=== PATIENT | male | born 1970 | race Hispanic/Latino ===

== ENCOUNTER 2016-12-24 11:49 | Emergency (ER) | payer SELFPAY ==
[2016-12-24 12:19] LABS: BASOPHILS 0.2 % (0.0-2.0); EOSINOPHILS 0.1 % (0.0-6.0); HEMATOCRIT 49.5 % (42.0-54.0); HEMOGLOBIN 16.9 g/dL (14.0-18.0); LYMPHOCYTES 6.9 % (20.0-40.0); LYMPHOCYTES# 0.9 X 10^3uL (0.8-3.8); MEAN CELL VOLUME 84.8 fL (80.0-100.0); MEAN CORPUSCULAR HEMOGLOBIN 28.9 pg (29.0-35.0); MEAN PLATELET VOLUME 7.9 fL (7.4-10.4); MONOCYTES 3.7 % (2.0-10.0); MONOCYTES# 0.5 X 10^3uL (0.2-1.0); NEUTROPHILS 89.1 % (54.0-75.0); PLATELET COUNT 316 X 10^3uL (130-440); RED BLOOD COUNT 5.83 X 10^6uL (4.20-6.10); RED CELL DISTRIBUTION WIDTH 12.8 % (11.5-14.5); WHITE BLOOD COUNT 13.4 X 10^3uL (3.9-10.7)
[2016-12-24] MEDS ORDERED: MAG-AL PLUS XS SUSP 30 ML UDC ONE (12:19)
[2016-12-24] MEDS ORDERED: LIDOCAINE VISCOUS 2% 15 ML UDC ONE (12:19)
[2016-12-24 12:29] LABS: BLOOD UREA NITROGEN 24 mg/dL (9-20); CALCIUM 9.5 mg/dL (8.4-10.2); CHLORIDE 105 mmol/L (98-107); EST GLOMERULAR FILTRATION RATE > 60 mL/min; GLUCOSE 120 mg/dL (70-100); MAGNESIUM 2.4 mg/dL (1.6-2.3); SODIUM 143 mmol/L (137-145)
[2016-12-24] MEDS ORDERED: HEPARIN SOD PORCINE 5,000 UNITS/ML VIAL ONE (13:24)
[2016-12-24 13:38] LABS: INR 0.9
--- NOTE | 2016-12-24 14:08 | ER NURSING DOCUMENTATION ---
Nurse's Notes [facility] Name:Priscilla Rick Age:46 yrs Sex:Male :1970 Arrival Date:12/24/2016 Time:11:49 BedTrauma-C Private MD: Diagnosis:Unstable Angina Presentation: 12/24 11:53 Acuity: RUDI 2 tg 11:57 Presenting complaint: Patient states: Woken by substernal chest pain at 0400. Seen in tg [place], where the MD thought there could be some ST changes, and referred to [facility] ED. Transition of care: [facility]. AIR CAT ACTIVATION no. 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 11:57 Method Of Arrival: Private Vehicle tg Triage Assessment: 12:01 General: Appears in no apparent distress, Behavior is appropriate for age. Pain: Denies lp pain. Cardiovascular: Capillary refill < 3 seconds Heart tones S1 S2 Pulses are all present. Historical: - Allergies: No known drug Allergies; - Home Meds: 1. Synthroid Oral - PMHx: THYROID PROBLEM; - PSHx: None; - Tetanus: unknown. - Ebola Screening: : Patient negative for fever greater than or equal to 101.5 degrees Fahrenheit, and additional compatible Ebola Virus Disease symptoms. Patient denies exposure to infectious person. Patient denies travel to an Ebola-affected area in the 21 days before illness onset. No symptoms or risks identified at this time. . - Immunization history: Flu Vaccine unknown. - Social history: Smoking status: Patient states was never smoker of tobacco. Screenin:59 Infectious Disease Risk Unable to Obtain. Abuse screen: Denies threats or abuse. Denies tg injuries from another. Nutritional screening: No deficits noted. Assessment: 13:19 Reassessment: Per fartun Gomez to wait for EMS 420 to return to [facility] (approx 30 tg minutes) to transfer this pt. . Vital Signs: 12:00 BP 125 / 94; Pulse 83; Resp 16; Temp 97.3(TE); Pulse Ox 96% on R/A; Weight 60.33 kg; lp Height 5 ft. 3 in. (160.02 cm); Pain 0/10; 13:10 BP 113 / 64; Pulse 85; Resp 18; Pulse Ox 93% on R/A; Pain 1/10; tg 12:00 Body Mass Index 23.56 (60.33 kg, 160.02 cm) lp ED Course: 11:49 EKG done. (by ED staff). Reviewed by Tomi Busch MD. tg 11:50 Patient arrived in ED. ama 11:53 Drake Daily RN is Primary Nurse. tg 11:53 Triage completed. tg 11:55 Tomi Busch MD is Attending Physician. sc 11:59 Valuables Remains with patient. cvt tech on. Pulse ox on. tg Administered Medications: 12:08 CANCELLED (Physician Discretion): Aspirin Chewable Tablet 324 mg PO once lp 12:08 Drug: GI Cocktail w/o Donnatol - (Maalox Suspension 30 ml, Lidocaine Liquid 2 % 15 ml); lp Route: PO; 12:34 Follow up: Response: No adverse reaction; Pain is decreased lp 13:15 Drug: heparin 60 units/kg; {Note: 3600 units.} Route: IVP; Site: right antecubital; lp 13:47 Follow up: Response: No adverse reaction tg Outcome: 13:14 ER care complete, transfer ordered by . fl 14:06 Patient left the ED. [facility] 14:08 [facility] Time: December 24, 2016 at 13:00 Patient's face sheet was faxed to accepting facility. Face Sheet included patient's name, address, age, gender, contact information and insurance information. Patient will be transported by: [facility] EMS ground. Report called to: ENMANUEL Frey Nurse and Physician Charting and Notes were sent to Accepting Facility. All tests and/or procedures with results, if applicable, were sent to accepting facility. 14:12 Transferred: tg 14:12 Condition: stable 14:12 Discharge Assessment: Patient awake and alert. 14:12 Instructed on need for transfer Signatures: Drake Daily RN RN tg Brenda Stewart RN RN Tomi Busch MD MD sc Kruger, Meg RN RN 2 Jose Clemons Andrew, Reg Reg ama
--- NOTE | 2016-12-24 14:08 | ER PHYSICIAN DOCUMENTATION ---
Physician Documentation [facility] Name:Priscilla Rick Age:46 yrs Sex:Male :1970 Arrival Date:12/24/2016 Time:11:49 BedTrauma-C Private MD: Tomi Sahni Disposition: 12/24 12:14 Critical Care: not applicable. nm Disposition: 12/24/16 13:14 Transfer ordered to [facility]. Diagnosis is Unstable Angina. - Reason for transfer: Higher level of care. - Accepting physician is Stroat. - Condition is Critical. - Problem is new. - Symptoms have improved. COBRA Form completed? Yes Transfer - Mode of Transportation Ambulance HPI: 12:09 This 46 yrs old Male presents to ER via Private Vehicle with complaints of sc Chest Pain. 12:09 The patient or guardian reports chest pain that is located primarily in the epigastric sc area, anterior chest wall. Onset: at 04:00. The pain does not radiate. There has been no movement of pain. Associated signs and symptoms: Pertinent negatives: diaphoresis, shortness of breath, vomiting. The chest pain is described as a pressure. Duration: The patient or guardian reports a single episode, that is still ongoing, but improving. Modifying factors: The symptoms are alleviated by nothing. Severity of pain: At its worst the pain was moderate in the emergency department the pain is a 1 / 10. Historical: - Allergies: No known drug Allergies; - Home Meds: 1. Synthroid Oral - PMHx: THYROID PROBLEM; - PSHx: None; - Tetanus: unknown. - Ebola Screening: : Patient negative for fever greater than or equal to 101.5 degrees Fahrenheit, and additional compatible Ebola Virus Disease symptoms. Patient denies exposure to infectious person. Patient denies travel to an Ebola-affected area in the 21 days before illness onset. No symptoms or risks identified at this time. . - Immunization history: Flu Vaccine unknown. - Social history: Smoking status: Patient states was never smoker of tobacco. ROS: 12:11 Constitutional: Negative for fever, chills, and weight loss. sc Eyes: Negative for injury, pain, redness, and discharge. ENT: Negative for injury, pain, and discharge. Neck: Negative for injury, pain, and swelling. Respiratory: Negative for shortness of breath, cough, wheezing, and pleuritic chest pain. Abdomen/GI: Negative for abdominal pain, nausea, vomiting, diarrhea, and constipation. Back: Negative for injury and pain. MS/Extremity: Negative for injury and deformity. Skin: Negative for injury, rash, and discoloration. 12:11 Neuro: Negative for headache, weakness, numbness, tingling, and seizure. sc 12:11 Cardiovascular: Positive for chest pain. Exam: Constitutional: This is a well developed, well nourished patient who is awake, alert, and in no acute distress. Head/Face: Normocephalic, atraumatic. Eyes: Pupils equal round and reactive to light, extra-ocular motions intact. Lids and lashes normal. Conjunctiva and sclera are non-icteric and not injected. Cornea within normal limits. Periorbital areas with no swelling, redness, or edema. ENT: Nares patent. No nasal discharge, no septal abnormalities noted. Tympanic membranes are normal and external auditory canals are clear. Oropharynx with no redness, swelling, or masses, exudates, or evidence of obstruction, uvula midline. Mucous membranes moist. Neck: Trachea midline, no thyromegaly or masses palpated, and no cervical lymphadenopathy. Supple, full range of motion without nuchal rigidity, or vertebral point tenderness. No meningismus. 12:11 Chest/axilla: Normal chest wall appearance and motion. Nontender with no deformity. sc No lesions are appreciated. Back: No spinal tenderness. No costovertebral tenderness. Full range of motion. Skin: Warm, dry with normal turgor. Normal color with no rashes, no lesions, and no evidence of cellulitis. MS/ Extremity: Pulses equal, no cyanosis. Neurovascular intact. Full, normal range of motion, negative Homans's, calves equal bilaterally. 12:11 Neuro: Awake and alert, GCS 15, oriented to person, place, time, and situation. Cranial nerves II-XII grossly intact. Motor strength 5/5 in all extremities. Sensory grossly intact. Cerebellar exam normal. Normal gait. 12:11 Cardiovascular: Rate: normal, Rhythm: regular. 12:11 Respiratory: the patient does not display signs of respiratory distress. Vital Signs: 12:00 BP 125 / 94; Pulse 83; Resp 16; Temp 97.3(TE); Pulse Ox 96% on R/A; Weight 60.33 kg; lp Height 5 ft. 3 in. (160.02 cm); Pain 0/10; 13:10 BP 113 / 64; Pulse 85; Resp 18; Pulse Ox 93% on R/A; Pain 1/10; tg 12:00 Body Mass Index 23.56 (60.33 kg, 160.02 cm) lp MDM: 11:55 Patient medically screened. nm 12:12 Differential diagnosis: acute myocardial infarction, acute pericarditis, anxiety, sc coronary artery disease gastritis, gastroesophageal reflux disease (GERD). Patient took aspirin within the past 24 hours. Patient did not receive fibrinolytic due to na. Data reviewed: vital signs, nurses notes, old medical records, lab test result(s), EKG, radiologic studies, and as a result, I will continue to observe the patient. Data interpreted: fsr: rate is 80 beats/min, rhythm is normal sinus rhythm. ECG:. 12/24 12:31 Order name: CBC AUTO DIF, MDIF/RMOR IF IND [facility] 12/24 13:04 Order name: BASIC METABOLIC PANEL [facility] 12/24 13:04 Order name: MAGNESIUM [facility] 12/24 13:04 Order name: TROPONIN I [facility] / 13:11 Interpretation: Abnormal. nm 12/24 13:07 Order name: DDIMER [facility] 12/24 13:44 Order name: PROTIME/INR [facility] 12/25 14:29 Order name: CHEST; SINGLE VIEW [id number] [facility] 12/24 11:56 Order name: 12-lead EKG; Complete Time: 11:59 nm 12/24 11:56 Order name: Iv Saline Lock; Complete Time: 12:08 nm 12/24 11:56 Order name: Place Patient On Monitor; Complete Time: 12:08 nm 12/24 11:56 Order name: Pulse Ox Continuous; Complete Time: 12:08 nm EC:12 Rate is 80 beats/min. Rhythm is regular. QRS [place] is Normal. SD interval is normal. QRS sc interval is normal. QT interval is normal. No Q waves. T waves are Normal. No ST changes noted. Clinical impression: Normal ECG and LVH. Interpreted by me. Reviewed by me. Dispensed Medications: 12:08 CANCELLED (Physician Discretion): Aspirin Chewable Tablet 324 mg PO once lp 12:08 Drug: GI Cocktail w/o Donnatol - (Maalox Suspension 30 ml, Lidocaine Liquid 2 % 15 ml); lp Route: PO; 12:34 Follow up: Response: No adverse reaction; Pain is decreased lp 13:15 Drug: heparin 60 units/kg; {Note: 3600 units.} Route: IVP; Site: right antecubital; lp 13:47 Follow up: Response: No adverse reaction tg Signatures: Drake Daily RN RN tg Brenda Stewart RN RN lp Tomi Busch MD MD sc Kruger, Meg, RN RN mk2
--- NOTE | 2016-12-25 13:33 | RADIOLOGY REPORT ---
A limited single portable view of the chest demonstrates the heart, vessels and lungs to be unremarkable. No infiltrate, fluid or pneumothorax is seen. IMPRESSION: Unremarkable limited single portable view of the chest. MTDD
== END 2016-12-24 14:07 | disposition short-term general hospital (02) ==
LOC: ER 11:49
DX: I20.0 Unstable angina (principal); I51.7 Cardiomegaly; R74.8 Abnormal levels of other serum enzymes; E03.9 Hypothyroidism, unspecified; Z79.899 Other long term (current) drug therapy; Z99.89 Dependence on other enabling machines and devices; Z74.3 Need for continuous supervision
CPT/HCPCS: 71010; 80048; 83735; 84484; 85025; 85379; 85610; 93005; 96374; 99285; A0425; A0427; J1644